=== PATIENT | male | born 1960 | race Two or more races ===

== ENCOUNTER → 2020-09-19 15:20 | Outpatient (BNVA) | payer BC, SELFPAY | PROVIDERS: PCP Internal Medicine; Referring Provider Internal Medicine; Visit Provider Hospitalist | DX: R91.1 Solitary pulmonary nodule (principal); R06.02 Shortness of breath; R05 Cough; D86.9 Sarcoidosis, unspecified; Z99.89 Dependence on other enabling machines and devices; Z79.899 Other long term (current) drug therapy | CPT/HCPCS: 90686 ==

== ENCOUNTER 2020-12-05 12:51 | Outpatient (REF) | payer BC, SELFPAY ==
--- NOTE | 2020-12-05 12:53 | CT_ITS ---
EXAMINATION: CT CHEST WITHOUT CONTRAST CLINICAL INFORMATION: Nonspecific abnormal finding of lung field. COMPARISON: None TECHNIQUE: Multidetector volumetric CT imaging of the chest was done. Axial MIP volume rendering provided. Sagittal and coronal reformatted images were obtained. This CT examination was performed using dose optimization techniques as appropriate, variously including the following: *Automated exposure control *Adjustment of mA and/or kV according to patient size (this includes techniques or standardized protocols for targeted exams where dose is matched to indication/reason for exam; i.e. extremities or head) *Use of iterative reconstruction technique DLP: 285 mGy-cm FINDINGS: ADULT PROBATION OFFICER: Unremarkable. LUNGS: The lungs are well expanded. There is an ill-defined 5 mm density right lung apex image 11/5. There are several ill-defined patchy irregular opacities scattered throughout both lungs without acute consolidation or mass. Prominent reticular interstitial changes are seen in both lower lobes, lingula and right middle lobe, likely underlying chronic changes. MEDIASTINUM: The heart size and the great vessels are normal caliber. Ascending aorta measures 4.0 x 3.9 cm. There are multiple moderate size mediastinal and bilateral hilar abnormal lymph nodes with some lymph nodes having eccentric calcification. The largest right pretracheal lymph node measures 1.8 cm para-aortic lymph node measuring 3.1 x 1.3 cm on sagittal image 50/7. The largest left subcarinal lymph node measures 1.0 x 1.1 cm on axial image 25/3. PLEURA: There is no pleural effusion. No pleural mass or thickening. AXILLA: No lymphadenopathy. UPPER ABDOMEN: The visualized liver, spleen, pancreas are unremarkable. OSSEOUS STRUCTURES: No lytic or sclerotic process seen. CT/CT chest wo IV con IMPRESSION: Several ill-defined patchy irregular opacities seen scattered throughout both lungs with likely underlying chronic interstitial lung disease in both lung bases. Superimposed COVID-like infection cannot be excluded. Abnormal mediastinal lymphadenopathy with eccentric calcification and several lymph nodes. This could be secondary to post-radiation treatment, pneumoconiosis, typical or atypical TB.
== END 2020-12-05 12:52 | disposition home or self-care (01) ==
LOC: HO.CT 12:51
PROVIDERS: Visit Provider Hospitalist
DX: R91.8 Other nonspecific abnormal finding of lung field (principal); R59.1 Generalized enlarged lymph nodes; D86.9 Sarcoidosis, unspecified
CPT/HCPCS: 71250

== ENCOUNTER → 2021-09-29 14:58 | Outpatient (BNVA) | payer OTHER, SELFPAY | PROVIDERS: PCP Internal Medicine; Visit Provider Hospitalist ==

== ENCOUNTER 2021-12-08 13:59 | Outpatient (REF) | payer OTHER, SELFPAY ==
[2021-12-08 15:10] LABS: Anion Gap 13 (12-20); Blood Urea Nitrogen 17 mg/dL (9-16); Calcium 9.8 mg/dL (8.4-10.2); Carbon Dioxide 27 mmol/L (22-29); Chloride 105 mmol/L (96-108); Estimated Glomerular Filt Rate 57; Glucose Random 94 mg/dL (60-115); Potassium 4.2 mmol/L (3.3-5.1); Sodium 141 mmol/L (135-145)
[2021-12-15 13:50] LABS: Angiotensin Converting Enzyme 24 U/L (9-67)
== END 2021-12-08 14:00 | disposition home or self-care (01) ==
LOC: HO.LAB 13:59
PROVIDERS: PCP Internal Medicine; Visit Provider Hospitalist
DX: D86.9 Sarcoidosis, unspecified (principal); J41.8 Mixed simple and mucopurulent chronic bronchitis
CPT/HCPCS: 36415; 80048; 82164

== ENCOUNTER 2021-12-10 13:50 | Outpatient (REF) | payer OTHER, SELFPAY ==
--- NOTE | ~2021-12-10 | CT_ITS ---
EXAMINATION: CT CHEST WITH CONTRAST CLINICAL INFORMATION: Interstitial pulmonary disease. COMPARISON: CT chest 12/05/2020. TECHNIQUE: Multidetector volumetric CT imaging of the chest was obtained after the administration of 50 mL of Omnipaque 350 intravenous contrast without immediate adverse reactions. Axial MIP volume rendering provided. Sagittal and coronal reformatted images were obtained. This CT examination was performed using dose optimization techniques as appropriate, variously including the following: *Automated exposure control *Adjustment of mA and/or kV according to patient size (this includes techniques or standardized protocols for targeted exams where dose is matched to indication/reason for exam; i.e. extremities or head) *Use of iterative reconstruction technique DLP: 202 mGy-cm. 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 LUNGS: Previously visualized ground-glass attenuation and irregular opacities in both upper lobes have improved. Similar opacity seen in the both lower lobes in a subpleural location have also significantly improvement with some residual changes present in the lung bases. Ill-defined 5 mm mm opacity in the right lung apex posteriorly on axial image 45/5 is stable. A 2 mm nodule along the left superior major fissure, axial image 94/5, appears stable and may represent an intrafissural lymph node. A 2 mm nodule right middle lobe, axial image 130/5, is stable. These nodules are better visualized following clearance of the ground-glass opacities seen previously. MEDIASTINUM: The thyroid lobes are symmetric and normal. The central trachea and the bronchi are widely patent. Heart size and the great vessels are normal caliber. There are reactive enlarged lymph nodes seen in the mediastinum. The largest para-aortic lymph node in the aortic window measures 2.0 x 1.8 cm axial image 22/3. Same size at the same level. Other lymph nodes in the subcarinal, retrocrural and lateral, hilar regions are stable. There is focal calcification seen in some of the right hilar lymph nodes. Previously seen prominent right paratracheal calcification on last axial CT exam 23/3 is not visualized on the present exam. PLEURA: There is no pleural effusion. No pleural mass or thickening. AXILLA: There are no lymph nodes seen. The chest wall appears unremarkable. UPPER ABDOMEN: Visualized liver, spleen, pancreas and bilateral adrenal glands are unremarkable. OSSEOUS STRUCTURES: No lytic or sclerotic process seen. CT/CT chest w IV con IMPRESSION: Dramatic improvement since last CT chest. Previously seen ill-defined irregular opacities and ground-glass attenuation changes in both lungs have significantly improved with some residual changes in both lung bases. There are several pulmonary nodules better visualized than on last exam and are felt to be stable. There are abnormal mediastinal lymph nodes which are similar or slightly improved. Eccentric calcification in some of the lymph nodes in the hilum are stable. Prominent right paratracheal calcification has resolved. No new abnormal lymph node seen. Fleischner guidelines were followed.
[2021-12-10] MEDS: iohexoL 350 MG/ML 100 ML INFUS..BTL 65 ML IV (14:44)
== END 2021-12-10 13:51 | disposition home or self-care (01) ==
LOC: HO.CT 13:50
PROVIDERS: PCP Internal Medicine; Visit Provider Hospitalist
DX: J84.9 Interstitial pulmonary disease, unspecified (principal); R91.8 Other nonspecific abnormal finding of lung field; R59.1 Generalized enlarged lymph nodes
CPT/HCPCS: 71260; Q9967

== ENCOUNTER → 2022-03-26 14:26 | Outpatient (BNVA) | payer OTHER, SELFPAY | PROVIDERS: PCP Internal Medicine; Visit Provider Hospitalist | DX: J45.909 Unspecified asthma, uncomplicated (principal) ==

== ENCOUNTER 2024-12-07 07:08 | Outpatient (REF) | payer OTHER, SELFPAY ==
--- NOTE | ~2024-12-07 | CT_ITS ---
CLINICAL HISTORY: SARCODOSIS CT chest without contrast Comparison: None Findings: The heart size is normal. Unremarkable thyroid. Enlarged hilar and mediastinal lymph nodes, some partially calcified. A right hilar lymph node on image 28 of series 7 measures 36 x 20 mm. The ascending aorta is dilated to 4.0 cm. Decompressed esophagus. No chest wall lesions or axillary adenopathy. 3 mm right upper lobe pulmonary nodule on image 44 of series 6. There are a few additional scattered sub 5 mm pulmonary nodules. Hazy ground-glass opacity in the lung bases. Mild diffuse bronchial wall thickening without suspicious endobronchial lesion. Trachea and central bronchi are patent.. The upper abdomen is discussed on the concurrent CT abdomen pelvis report. The bones are intact. IMPRESSION: 1. Hilar and mediastinal adenopathy which would be consistent with the given diagnosis of sarcoidosis. 2. Ascending aorta dilated to 4 cm 3. Sub 5 mm pulmonary nodules and nonspecific ground-glass opacities in the lung bases. Follow-up CT in 1 year recommended. This document has been electronically signed by: Donna Waggoner MD on 12/08/2024 06:49:37
--- NOTE | ~2024-12-07 | CT_ITS ---
CLINICAL HISTORY: SARCODOSIS CT abdomen and pelvis with contrast Comparison: None Findings: Multiple enlarged lymph nodes are seen within the lung base. The chest will be described in detail on the concurrent CT chest report. Unremarkable gallbladder and solid organs. No urolithiasis. No bowel obstruction, pneumoperitoneum, or pneumatosis. Pelvic contents unremarkable. Normal appendix. No acute fracture. Lumbar degenerative changes. No fluid collections or adenopathy. IMPRESSION: No acute findings. No significant adenopathy below the diaphragm. This document has been electronically signed by: Donna Waggoner MD on 12/08/2024 06:43:44
[2024-12-07] MEDS: iohexoL 350 MG/ML 100 ML INFUS..BTL IV (11:28)
[2024-12-07 15:01] LABS: Creatinine POC 0.9 mg/dL (0.5-1.4); GFR POC > 60
== END 2024-12-07 07:09 | disposition home or self-care (01) ==
LOC: HO.CT 07:08
PROVIDERS: PCP Internal Medicine; Visit Provider Physician Assistant Medical
DX: D86.9 Sarcoidosis, unspecified (principal)
CPT/HCPCS: 71250; 74177; 82565; Q9967

== ENCOUNTER → 2024-12-07 07:15 | Outpatient (BNV) | payer OTHER, SELFPAY | PROVIDERS: PCP Internal Medicine; Visit Provider Radiology Diagnostic Radiology | DX: R59.0 Localized enlarged lymph nodes (principal); D86.0 Sarcoidosis of lung; R91.1 Solitary pulmonary nodule; I77.810 Thoracic aortic ectasia | CPT/HCPCS: 71250; 74177 ==

== ENCOUNTER 2024-12-20 12:44 | Outpatient (AMB) | payer OTHER, SELFPAY ==
[2024-12-20 13:05] VITALS: BP 130/80; PULSE 68; O2SAT 99; BMI 35.5
--- NOTE | 2024-12-20 13:05 | A.OFFVIS_ITS ---
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 He has known lymphadenopathy and also pulmonary nodules. He underwent a repeat CT scan of the chest beginning of June demonstrating a new 2.2 cm left lower lobe ill-defined nodular density. This nodule was not present whatsoever and his previous CT scan from [facility]. Therefore, at the time I recommended a PET scan. He has not had a CT scan as of yet. We again reviewed the imaging studies in the office any understood that this 2.2 cm density had to be followed up in case it was the malignant process. Therefore, I will call to reschedule his PET scan. In the meantime he has been using the CPAP. The CPAP therapy continues be effective in beneficial. He is AHI is down to 1.5. He has the CPAP more than 4 hours a night. He has been getting supplies regularly. We did perform a PET scan to further address this do 2.2 cm density in the lower lung zone on the left side. On the PET scan appeared that this area had significantly shrunk in size with some areas of scarring other nodules were present. Indeed still has significant lymphadenopathy. The lymph nodes are indeed FDG positive. There are biopsy- proven sarcoidosis without any evidence of any lymphoproliferative disease on both the cytology and also the flow cytometry. We will continue monitoring closely these findings. No evidence of any active sarcoid outside of the lungs at this time. 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 12/25/2019. The patient is here for pulmonary follow-up visit. Overall he is doing well. He denies any respiratory complaints. Does get somewhat short of breath with activity but it mild. Does get better with rest. He is trying to exercise. He was taking a statin medication that resulted in significant myopathy when he was not able to exercise regularly. He also follow-up with primary care doctor regarding his renal insufficiency in have blood work additionally done in June. I did emphasize that if his blood work is to abnormal he needs to follow up with renal specially with a question of sarcoidosis which can also affect the kidneys. The patient did have pulmonary function studies demonstrating small airways disease. He does not have any inhaler at this time he would like not to have 1 as possible. I do not think he necessarily needs 1 since he is asymptomatic. Patient continues uses CPAP. The CPAP therapy continues to be affecting beneficial. He continues uses CPAP for more than 4 hours. Patient also had a CT scan and subsequently a PET scan back in the fall of 2018. He needs to have a repeat CT scan and the fall. He will follow up with us after that study. 07/24/2020 The patient is here for a pulmonary follow-up visit. He is completing complaining of worsening cough now for the last month. His cough is usually nonproductive in nature although he may come up with some white phlegm. Moderate severity. Does not really effect his respiratory capacity. He is walking on a regular basis and has not demonstrated any shortness of breath or chest discomfort. He did start any blood pressure medications going to make sure that is not an CAMILLA-inhibitor. In the meantime the patient does have underlying pulmonary nodules and lymphadenopathy the needs to to be followed further. He did have a plan CT scan for August of this year that we can potentially move sooner if he does not have any improvement in his respiratory symptoms. He continues uses CPAP. The CPAP therapy continues to be affecting beneficial. He does use it for more than 4 hours a night. He denies ever having allergy testing which I think would be reasonable at this time. 09/19/2020 the patient is here for pulmonary follow-up visit. He continues to have complaints of shortness of breath and cough. Mild to moderate severity. Associated with some chest congestion. He is concerned that it could be related to the underlying sarcoidosis. We did have him undergo blood work demonstrating significant elevations in his eosinophils and also abnormal allergy testing. Explained to him that is likely to underlying to things are occurring does sarcoidosis and allergic rhinitis and allergic asthma. Based on his CT scan and blood work it appears to be more the allergic component res ulting of the symptoms. Therefore will optimize his respiratory therapy. In view of his significant eosinophilia and abnormal allergy testing I will have him be evaluated by Allergy and immunology. Will monitor closely his lymphadenopathy and pulmonary nodules. In regards to the CPAP the CPAP therapy continues to be affecting beneficial. He continues uses every night more than 4 hours a night. 09/29/2021 the patient is here for a pulmonary follow-up visit. He complains of worsening shortness of breath and productive cough. The cough is producing white phlegm. It is [id number] severity. The patient would like to know if this is related to the sarcoid as he does not want his lungs to get worse. He also recovered from COVID back in October. He was admitted to the hospital. We did review his chest x-rays from [facility] showing significant bilateral airspace disease. He also underwent a CT scan of the chest in November 2020 demonstrating interstitial lung disease and significant lymphadenopathy. In view of his worsening respiratory symptoms we will request a repeat CT scan to address the interstitial lung disease and lymphadenopathy. If the patient has worsening disease we can consider starting therapy for sarcoidosis. However, he understands that the prednisone will resulting significant adverse effects. The patient does have evidence of chronic bronchitis. He also has been on respiratory medications. The patient this time based on his chronic bronchitis and exacerbations would benefit from starting Daliresp. I will start him on a small dose with the hope of him tolerating the adverse effects as he develops tolerance. The patient may be also a good candidate for biologic therapy. in the meantime he continues uses CPAP. The CPAP therapy continues to be affecting beneficial. He does use it for the whole night. 03/26/2022 the patient is here for pulmonary follow-up visit. Overall he has been feeling a lot better. He recovered from COVID-19. He did have a repeat CT scan of the chest that appeared to show significant improvement in the interstitial Lung component and also some slight improvement also in the lym phadenopathy. It appears that the sarcoid may be in remission which is reassuring. He continues uses CPAP therapy. The CPAP therapy continues to be affecting beneficial. He does use it for more than 4 hours a night. He is also trying to lose weight which is helping. The patient also has been doing very well from the asthma standpoint. Since his breathing has been improved he actually stopped all his medicines. He is strongly feels that the COVID-19 booster helped him improve his symptoms overall. He states he was night and day he got the booster in his symptoms subsided significantly. 12/20/2024 the patient is here for a pulmonary follow-up visit. Overall the patient has been doing very well. He has been active at the gym. Denies any shortness of breath or chest pain. He denies any night sweats or rash. His appetite has been good. The patient did have a repeat CT scan of the chest because of abnormal findings while having a cardiac workup. Therefore he was set up for CT scan of the chest which she had here. I did personally review the CT scan of the chest in 2024 and also compared to a CT scan from 2020. He has significant lymphadenopathy which is stable compared to 2020. Also pulmonary nodules are stable. Therefore seems to be all consistent with sarcoidosis. Some of the lymphadenopathy is calcified again consistent with his sarcoidosis. Will plan to follow-up with a CT scan in a year. If he has any worsening symptoms we can also readdress that. Will have him get blood work to assess for sarcoid activity and also will check an LDH and sedimentation rate to make sure no any evidence of any active blood dyscrasias. In the meantime the patient has been using the CPAP. CPAP therapy has been affecting beneficial. He does use it for more than 4 hours a night. He is comfortable with his nasal mask. He does have significant air leakage and I did remind him to keep his mouth closed to use a chinstrap. He will follow-up in a year's time she has any issues prior to that he will call for an earlier assessment. [facility] Medical History (Updated 12/13/24 @ 07:36 by Elsi Winslow) COPD (chronic obstructive pulmonary disease) ILD (interstitial lung disease) Sarcoidosis Pulmonary nodules MARCY on CPAP Lymphadenopathy Moderate persistent asthma Social History Patient Tobacco Use Status: Never used Tobacco Review of Systems Const Denies night sweats ENT Denies change in voice, Denies lip swelling, Denies mouth pain, Reports nasal congestion, Reports nasal discharge and Denies tongue swelling Card Denies chest pain Resp Denies chest congestion, Reports cough and Denies wheezing GI Denies abdominal pain Musc Denies no additional complaints Neuro Denies Neuro-related abnormal movements Psych Denies no additional complaints Tim/Lymph Denies easy bleeding and Denies lymphadenopathy Aller/Immun Denies lip swelling, Denies tongue swelling and Denies wheezing Physical Exam Vital Signs: Last Vital Signs Pulse 68 12/20/24 13:05 BP 130/80 12/20/24 13:05 Pulse Ox 99 12/20/24 13:05 Oxygen Delivery Method Room Air 12/20/24 13:05 BMI result Body Mass Index 35.5 Const General: alert HEENT General nose exam: Abnormal external nose present and Nasal discharge present Eyes Pupils: Equal, round and reactive pupils present Neck Neck: Yes normal visual inspection, Yes full ROM and Yes no lymphadenopathy Chest Chest palpation & inspection: normal inspection of the chest Resp Auscultation: no wheezes and diminished lung sounds Cardio Rate: regular rate Rhythm: regular rhythm Heart sounds: S1 normal heart sound present and S2 normal heart sound present GI Palpation (GI): Soft to palpation and nontender Auscultation: normal bowel sounds General: Yes no CVA tenderness Back/Spine/Pelvis Back: no CVA tenderness Skin General skin exam: rashes and/or lesions noted Neuro Cranial nerves: Yes Equal, round and reactive pupils present Assessment & Plan Assessment & Plan (1) Lymphadenopathy: Code(s): R59.1 - Generalized enlarged lymph nodes Category: Medical (2) Pulmonary nodules: Code(s): R91.8 - Other nonspecific abnormal finding of lung field Category: Medical (3) Sarcoidosis: Code(s): D86.9 - Sarcoidosis, unspecified Category: Medical (4) ILD (interstitial lung disease): Comment: resolved Code(s): J84.9 - Interstitial pulmonary disease, unspecified Category: Medical Plan bloodwork continue CPAP ANDREINA as needed repeat CT chest 1 yr F/U 1 year Orders: Orders Erythrocyte Sedimentation Rate Today D86.9 - Sarcoidosis, unspecified CT chest wo IV con 1 Year D86.9 - Sarcoidosis, unspecified, J84.9 - Interstitial pulmonary disease, unspecified, R59.1 - Generalized enlarged lymph nodes, R91.8 - Other nonspecific abnormal finding of lung field Angiotensin Converting Enzyme Today D86.9 - Sarcoidosis, unspecified Lactate Dehydrogenase Today D86.9 - Sarcoidosis, unspecified Coding Level of Care Code Est Pt Level 4 (59465) Diagnoses Lymphadenopathy R59.1 Pulmonary nodules R91.8 Sarcoidosis D86.9 ILD (interstitial lung disease) J84.9 Time Spent (min) 20
--- OUTSIDE RECORDS SUMMARY | 2024-12-20 16:37 | XMS_ITS | Encounter Summary ---
Author Organization [facility] Address [facility] [place] [address] Care Team Providers Care No Bake Molder Name Role Phone Ted Bryan MD Primary Care Provider Unavail able Encounter Details Date Type Department Care Team Description 12/15/2021 Orders Only Medical Records [address] [place] [address] Laura Moncada MD Social History Tobacco Use Types Packs/Day Years Used Date Smoking Tobacco: Never Smokeless Tobacco: Never Sex Assigned at Date Recorded Not on file documented as of this encounter Plan of Treatment Not on file documented as of this encounter Procedures Procedure Name Priority Date/Time Associated Diagnosis Comments OUTSIDE LAB Routine 12/15/2021 documented in this encounter Results * OUTSIDE LAB (12/15/2021) Laura Moncada MD LAB documented in this encounter Visit Diagnoses Not on filedocumented in this encounter Care Teams No Bake Molder Relationship Specialty Start Date End Date Ted Bryan MD PCP - General Internal Medicine 09/04/21 documented as of this encounter
--- OUTSIDE RECORDS SUMMARY | 2024-12-20 16:37 | XMS_ITS | Encounter Summary ---
Author Organization [facility] Address [address] [place] [address] Care Team Providers Care Mining And Quarrying Machinery Repairer Name Role Phone Desmond Vera MD Primary Care Provider Ted Jay MD Primary Care Provider Unavail able Encounter Details Date Type Department Care Team Description 12/14/2018 Orders Only Pulmonology - [address] [place] [address] Lance Cates MD Sarcoid (Primary Dx) Social History Tobacco Use Types Packs/Day Years Used Date Smoking Tobacco: Never Smokeless Tobacco: Never Sex Assigned at Date Recorded Not on file documented as of this encounter Plan of Treatment Not on file documented as of this encounter Results * (ABNORMAL) BASIC METABOLIC PANEL (12/14/2018 1:13 PM EST) [facility] GLUCOSE 110(H) 70 - 100 mg/dL 12/14/2018 6:48 PM EST [facility] Comment:Reference range appl icable to fasting specimens only Blood Urea Nitrogen 17 5 - 25 mg/dL 12/14/2018 6:48 PM EST [facility] CREAT 1.37(H) 0.7 - 1.3 mg/dL 12/14/2018 6:48 PM EST [facility] GLOMERULAR FILTRATION RATE 54 12/14/2018 6:48 PM EST [facility] Comment: If patient is -[place], multiply result by 1.21 Chronic Kidney Disease: < 60 ml/min/1.73 square meters Kidney Failure: < 15 ml/min/1.73 square meters NA 137 133 - 145 mmol/L 12/14/2018 6:48 PM EST [facility] K 4.1 3.5 - 5.5 mmol/L 12/14/2018 6:48 PM EST [facility] CL 103 96 - 110 mmol/L 12/14/2018 6:48 PM EST [facility] CARBON DIOXIDE (CO2) 28 21 - 32 mmol/L 12/14/2018 6:48 PM EST [facility] ANION GAP 6 3 - 11 12/14/2018 6:48 PM EST [facility] CALCIUM 8.9 8.5 - 10.5 mg/dL 12/14/2018 6:48 PM EST [facility] 12/14/2018 1:13 PM EST 12/14/2018 1:14 PM EST Lance Cates MD LAB [facility] documented in this encounter Visit Diagnoses Diagnosis Sarcoid- Primary Sarcoidosis documented in this encounter Care Teams Mining And Quarrying Machinery Repairer Relationship Specialty Start Date End Date Desmond Vera MD PCP - General Internal Medicine 04/27/18 1 Ted Bryan MD PCP - General Internal Medicine 09/04/21 documented as of this encounter
--- OUTSIDE RECORDS SUMMARY | 2024-12-20 16:37 | XMS_ITS | Encounter Summary ---
Author Organization [facility] Address [facility] [place] [address] Care Team Providers Care Patent Searcher Name Role Phone Desmond Vera MD Primary Care Provider Unav ailable Ted Bryan MD Primary Care Provider Unavail able Encounter Details Date Type Department Care Team Description 08/08/2018 Orders Only Medical Records [address] [place] [address] Lance Cates MD Social History Tobacco Use Types Packs/Day Years Used Date Smoking Tobacco: Never Smokeless Tobacco: Never Sex Assigned at Date Recorded Not on file documented as of this encounter Plan of Treatment Not on file documented as of this encounter Procedures Procedure Name Priority Date/Time Associated Diagnosis Comments OUTSIDE SLEEP STUDY Routine 08/03/2018 documented in this encounter Results * OUTSIDE SLEEP STUDY (08/03/2018) Lance Cates MD PULMONOLOGY documented in this encounter Visit Diagnoses Not on filedocumented in this encounter Care Teams Patent Searcher Relationship Specialty Start Date End Date Desmond Vera MD PCP - General Internal Medicine 04/27/18 1 Ted Bryan MD PCP - General Internal Medicine 09/04/21 documented as of this encounter
--- OUTSIDE RECORDS SUMMARY | 2024-12-20 16:37 | XMS_ITS | Encounter Summary ---
Author Organization [facility] Address [address] [place] [address] Care Team Providers Care Gambling Supervisor Name Role Phone Desmond Vera MD Primary Care Provider Ted Jay MD Primary Care Provider Unavail able Reason for Visit * Reason Onset Date Comments TEST RESULTS 07/17/2018 Encounter Details Date Type Department Care Team Description 07/17/2018 Telephone Pulmonology - [address] [place] [address] Lance Cates MD TEST RESULTS Social History Tobacco Use Types Packs/Day Years Used Date Smoking Tobacco: Never Smokeless Tobacco: Never Sex Assigned at Date Recorded Not on file documented as of this encounter Miscellaneous Notes * Telephone Encounter - Amairani Nogueira M.A. - 07/17/2018 4:14 PM EDT Forward to for results * Telephone Encounter - Stacey Paez - 07/17/2018 3:40 PM EDT Inform patient: ANY URGENT OR ABNORMAL RESULTS WIILL RESULT IN A CALL BACK TO THE PATIENT KARYN. Type of test: :Blood work Date test was performed: Where was the test performed: [facility] Who ordered this test?: DR Perez Is the doctor here today?: YES Can the message wait until the doctor returns?: YES IF PATIENT'S PCP IS NOT IN INSTRUCT PATIENT THAT THEY WILL RECEIVE A CALL BACK WHEN THE PCP IS IN THE OFFICE NEXT. documented in this encounter Plan of Treatment Not on file documented as of this encounter Visit Diagnoses Not on filedocumented in this encounter Care Teams Gambling Supervisor Relationship Specialty Start Date End Date Desmond Vera MD PCP - General Internal Medicine 04/27/18 1 Ted Bryan MD PCP - General Internal Medicine 09/04/21 documented as of this encounter
--- OUTSIDE RECORDS SUMMARY | 2024-12-20 16:37 | XMS_ITS | Encounter Summary ---
Author Organization [facility] Address [address] [place] [address] Care Team Providers Care Outdoor Illuminating Engineer Name Role Phone Desmond Vera MD Primary Care Provider Unav ailable Ted Bryan MD Primary Care Provider Unavail able Encounter Details Date Type Department Care Team Description 12/25/2018 Telephone Pulmonology - [address] [place] [address] Lance Cates MD Social History Tobacco Use Types Packs/Day Years Used Date Smoking Tobacco: Never Smokeless Tobacco: Never Sex Assigned at Date Recorded Not on file documented as of this encounter Plan of Treatment Not on file documented as of this encounter Visit Diagnoses Not on filedocumented in this encounter Care Teams Outdoor Illuminating Engineer Relationship Specialty Start Date End Date Desmond Vera MD PCP - General Internal Medicine 04/27/18 1 Ted Bryan MD PCP - General Internal Medicine 09/04/21 documented as of this encounter
--- OUTSIDE RECORDS SUMMARY | 2024-12-20 16:37 | XMS_ITS | Encounter Summary ---
Author Organization [facility] Address [address] [place] [address] Care Team Providers Care Civil Litigation Attorney Name Role Phone Desmond Vera MD Primary Care Provider Ted Jay MD Primary Care Provider Unavail able Encounter Details Date Type Department Care Team Description 06/21/2018 Orders Only Medical Records [address] [place] [address] Lance Cates MD MARCY (obstructive sleep apnea); Sarcoid; Nasal congestion Social History Tobacco Use Types Packs/Day Years Used Date Smoking Tobacco: Never Smokeless Tobacco: Never Sex Assigned at Date Recorded Not on file documented as of this encounter Plan of Treatment Not on file documented as of this encounter Procedures Procedure Name Priority Date/Time Associated Diagnosis Comments OUTSIDE SLEEP STUDY Routine 06/17/2018 CHG COMPREHENSIVE METABOLIC PANEL Routine 06/16/2018 MARCY (obstructive sleep apnea) Sarcoid Nasal congestion documented in this encounter Results * OUTSIDE SLEEP STUDY (06/17/2018) Lance Cates MD PULMONOLOGY * COMPREHENSIVE METABOLIC PANEL (06/16/2018) 06/16/2018 Lance Cates MD [facility] documented in this encounter Visit Diagnoses Diagnosis MARCY (obstructive sleep apnea) Obstructive sleep apnea (adult) (pediatric) Sarcoid Sarcoidosis Nasal congestion Other diseases of nasal cavity and sinuses documented in this encounter Care Teams Civil Litigation Attorney Relationship Specialty Start Date End Date Desmond Vera MD PCP - General Internal Medicine 04/27/18 1 Ted Bryan MD PCP - General Internal Medicine 09/04/21 documented as of this encounter
--- OUTSIDE RECORDS SUMMARY | 2024-12-20 16:37 | XMS_ITS | Encounter Summary ---
Author Organization [facility] Address [address] [place] [address] Care Team Providers Care Lining Caser Name Role Phone Desmond Vera MD Primary Care Provider Ted Jay MD Primary Care Provider Unavail able Reason for Visit * Reason Onset Date Comments TEST RESULTS 05/31/2018 Encounter Details Date Type Department Care Team Description 05/31/2018 Telephone Pulmonology - [address] [place] [address] Lance Cates MD TEST RESULTS Social History Tobacco Use Types Packs/Day Years Used Date Smoking Tobacco: Never Smokeless Tobacco: Never Sex Assigned at Date Recorded Not on file documented as of this encounter Miscellaneous Notes * Telephone Encounter - Amairani Nogueira M.A. - 05/31/2018 2:40 PM EDT Called pt lmom to call office to sched appt. If he calls back please sched appt 712/18 1:45pm. Donald. * Telephone Encounter - Angela Reynolds - 05/31/2018 12:49 PM EDT Inform patient: ANY URGENT OR ABNORMAL RESULTS WIILL RESULT IN A CALL BACK TO THE PATIENT KARYN. Type of test: :Bronchoscopy Date test was performed: Where was the test performed: [facility] Who ordered this test?: Dr Cates Is the doctor here today?: NO Can the message wait until the doctor returns?: YES IF PATIENT'S PCP IS NOT IN INSTRUCT PATIENT THAT THEY WILL RECEIVE A CALL BACK WHEN THE PCP IS IN THE OFFICE NEXT. documented in this encounter Plan of Treatment Not on file documented as of this encounter Visit Diagnoses Not on filedocumented in this encounter Care Teams Lining Caser Relationship Specialty Start Date End Date Desmond Vera MD PCP - General Internal Medicine 04/27/18 1 Ted Bryan MD PCP - General Internal Medicine 09/04/21 documented as of this encounter
--- OUTSIDE RECORDS SUMMARY | 2024-12-20 16:37 | XMS_ITS | Encounter Summary ---
Author Organization [facility] Address [facility] [place] [address] Care Team Providers Care Band Scroll Saw Operator Name Role Phone Desmond Vera MD Primary Care Provider Unav ailable Ted Bryan MD Primary Care Provider Unavail able Encounter Details Date Type Department Care Team Description 07/28/2021 Granite Polisher Apprentice Report Medical Records [address] [place] [address] Ted Bryan MD Social History Tobacco Use Types Packs/Day Years Used Date Smoking Tobacco: Never Smokeless Tobacco: Never Sex Assigned at Date Recorded Not on file documented as of this encounter Plan of Treatment Not on file documented as of this encounter Visit Diagnoses Not on filedocumented in this encounter Care Teams Band Scroll Saw Operator Relationship Specialty Start Date End Date Desmond Vera MD PCP - General Internal Medicine 04/27/18 1 Ted Bryan MD PCP - General Internal Medicine 09/04/21 documented as of this encounter
--- OUTSIDE RECORDS SUMMARY | 2024-12-20 16:37 | XMS_ITS | Encounter Summary ---
Author Organization [facility] Address [address] [place] [address] Care Team Providers Care Boatswain'S Mate Name Role Phone Ted Bryan MD Primary Care Provider Unavail able Reason for Visit * Reason Onset Date Comments Information Needed 09/04/2021 Encounter Details Date Type Department Care Team Description 09/04/2021 Telephone Gastroenterology - [place] [address] [facility] [address] [facility] [address] [place] [id number] Renny Owens MD [address] [place] [address] Information Needed Social History Tobacco Use Types Packs/Day Years Used Date Smoking Tobacco: Never Smokeless Tobacco: Never Sex Assigned at Date Recorded Not on file documented as of this encounter Miscellaneous Notes * Telephone Encounter - Eliane Coffman - 09/04/2021 1:33 PM EDT Notes received from Dr. Ted Bryan's office for a urgent appt for this patient for postive fit test. We need a insurance referral before we can book I sent them this request with Dr. Moncada's NPI. documented in this encounter Plan of Treatment Not on file documented as of this encounter Visit Diagnoses Not on filedocumented in this encounter Care Teams Boatswain'S Mate Relationship Specialty Start Date End Date Ted Bryan MD PCP - General Internal Medicine 09/04/21 documented as of this encounter
--- OUTSIDE RECORDS SUMMARY | 2024-12-20 16:37 | XMS_ITS | Encounter Summary ---
Author Organization [facility] Address [address] [place] [address] Care Team Providers Care Human Resources Compensation Analyst Name Role Phone Ted Bryan MD Primary Care Provider Unavail able Encounter Details Date Type Department Care Team Description 09/07/2021 Orders Only Gastroenterology - [address] [place] [address] Ted Bryan MD Social History Tobacco Use Types Packs/Day Years Used Date Smoking Tobacco: Never Smokeless Tobacco: Never Sex Assigned at Date Recorded Not on file COVID-19 Exposure Response Date Recorded In the last month, have you been in contact with someone who was confirmed or suspected to have Coronavirus / COVID-19? No / Unsure 09/08/2021 3:44 PM EDT documented as of this encounter Plan of Treatment Not on file documented as of this encounter Visit Diagnoses Not on filedocumented in this encounter Care Teams Human Resources Compensation Analyst Relationship Specialty Start Date End Date Ted Bryan MD PCP - General Internal Medicine 09/04/21 documented as of this encounter
== END 2024-12-20 13:31 | disposition home or self-care (01) ==
PROVIDERS: PCP Internal Medicine; Visit Provider Hospitalist
DX: R59.1 Generalized enlarged lymph nodes (principal); R91.8 Other nonspecific abnormal finding of lung field; D86.9 Sarcoidosis, unspecified; J84.9 Interstitial pulmonary disease, unspecified
CPT/HCPCS: 99214

== ENCOUNTER → 2024-12-20 12:44 | Outpatient (BNVA) | payer OTHER, SELFPAY | PROVIDERS: PCP Internal Medicine; Visit Provider Hospitalist ==